=== PATIENT | male | born 1960 | race Caucasian/White ===

== ENCOUNTER 2021-11-16 23:16 | Emergency (ER) | payer MEDICAID ==
[~2021-11-16] VITALS: Ht 165.1 cm; Wt 81.6 kg
[2021-11-16 23:19] VITALS: BP 155/97
--- NOTE | 2021-11-16 23:26 | NUR ---
PATIENT AMBULATED TO BED 03
--- NOTE | 2021-11-16 23:32 | NUR ---
61 Y/O MALE BIBS, C/O POSSIBLE BUG BITE ON BUTTOCK. PATIENT PRESENTS TO ED WITH PAIN ONLY WHEN WALKING AND A RED RAISED BUMP. PT STATES HIS NOTICED IT YESTERDAY. DENIES N/V/D; SKIN IS PINK/WARM/DRY; AAOX4 WITH EVEN AND STEADY GAIT; LUNGS CLEAR BL; HR EVEN AND REGULAR; PT DENIES ANY FEVER, CP, SOB, OR COUGH AT THIS TIME; PATIENT STATES PAIN OF 0/10 AT THIS TIME; VSS; PATIENT POSITIONED FOR COMFORT; HOB ELEVATED; BEDRAILS UP X2; BED DOWN. ER MD MADE AWARE OF PT STATUS. PT DENIES HX, ALLERGIES, AND NO MEDS
--- NOTE | 2021-11-16 23:41 | NUR ---
ER MD AT BEDSIDE EXAMINING PT
--- NOTE | 2021-11-16 23:42 | NUR ---
Dr. Gresham examining patient.
[2021-11-16] MEDS ORDERED: cefTRIAXone 1,000 MG in LIDOCAINE MPF 1% 2.1 ML IM ONE (23:45)
[2021-11-16] MEDS ORDERED: CEPH-588 PO (23:45)
[2021-11-16] MEDS ORDERED: cefTRIAXone 1,000 MG VIAL ONE (23:53)
[2021-11-16] MEDS ORDERED: LIDOCAINE MPF 1% 5 ML ONE (23:54)
[2021-11-17 00:03] VITALS: BP 155/97
--- NOTE | 2021-11-17 00:03 | NUR ---
Patient discharged with v/s stable. Written and verbal after care instructions given and explained. Patient alert, oriented and verbalized understanding of instructions. Ambulatory with steady gait. All questions addressed prior to discharge. ID band removed. Patient advised to follow up with PMD. Rx of KEFLEX given. Patient educated on indication of medication including possible reaction and side effects. Opportunity to ask questions provided and answered. VSS, A/OX4, AMBULATORY, UNLABORED BREATHING, AND CALM DEMEANOR.
== END 2021-11-17 00:03 | disposition home or self-care (01) ==
LOC: MED 23:16
DX: L03.317 Cellulitis of buttock (principal); Z79.899 Other long term (current) drug therapy
CPT/HCPCS: 96372; 99283; J0696; J2001

== ENCOUNTER 2022-01-20 22:49 | Emergency (ER) | payer MEDICAID ==
[~2022-01-20] VITALS: Ht 157.5 cm; Wt 85.3 kg
[~2022-01-20 22:49] MED LIST: CEPH-588 PO
[2022-01-20 23:00] VITALS: BP 157/87
--- NOTE | 2022-01-20 23:07 | NUR ---
TO BED AMBULTORY
--- NOTE | 2022-01-20 23:22 | NUR ---
Dr. Lopez examining patient.
[2022-01-20] MEDS ORDERED: diphenhydrAMINE 50 MG/ML VIAL IM ONE (23:25)
--- NOTE | 2022-01-21 00:07 | NUR ---
61 Y.O. M BIB C/O DRANK AUGMENTIN AT 8PM AND BEGAN FEELING "WEIRD". DYSPHAGIA X8PM. PT REPORTED IN LOBBY HE FEELS FACIAL NUMBNESS ABOUT2 MINS AGO. [employer] COUNTER REPRESENTATIVE. EQUAL RISE OF EYE BROWS. NO FACIAL DROOP. IN TRIAGE. PT IS HAVING ADVERSE REACTION TO AUGMENTIN PER . LUNG SOUNDS CLEAR. A&OX4, VITALS WNL, NO SIGNS OF RESPIRATORY DISTRESS, SKIN INTACT, AND NO N/V/D. DENIES HX, RX
[2022-01-21 01:02] VITALS: BP 157/87
--- NOTE | 2022-01-21 01:03 | NUR ---
Patient discharged with v/s stable. Written and verbal after care instructions given and explained. Patient verbalized understanding. Ambulatory with steady gait. All questions addressed prior to discharge. Advised to follow up with PMD.
== END 2022-01-21 01:03 | disposition home or self-care (01) ==
LOC: MED 22:49
DX: J02.9 Acute pharyngitis, unspecified (principal); T36.0X5A Adverse effect of penicillins, initial encounter; T36.1X5A Adverse effect of cephalosporins and other beta-lactam antibiotics, initial encounter; R13.10 Dysphagia, unspecified; Z79.899 Other long term (current) drug therapy; Y92.89 Other specified places as the place of occurrence of the external cause
CPT/HCPCS: 96372; 99283; J1200

== ENCOUNTER 2022-02-25 19:37 | Emergency (ER) | payer MEDICAID, OTHER ==
[~2022-02-25] VITALS: Ht 165.1 cm; Wt 79.4 kg
[2022-02-25 20:01] VITALS: BP 126/79
--- NOTE | 2022-02-25 20:52 | NUR ---
PATIENT LEFT WITHOUT BEING SEEN BY DR. MIMS. NO FURTHER CARE PROVIDED FOR PATIENT.
--- NOTE | 2022-02-25 20:53 | NUR ---
PER TOMAS PT LWBS 2051
== END 2022-02-25 20:52 | disposition left against medical advice (07) ==
LOC: MED 19:37
DX: R11.10 Vomiting, unspecified (principal); R10.9 Unspecified abdominal pain; Z53.21 Procedure and treatment not carried out due to patient leaving prior to being seen by health care provider